=== PATIENT | female | born 1990 | race Caucasian/White ===

== ENCOUNTER 2019-04-19 11:36 | Emergency (ER) | payer MEDICAID ==
[2019-04-19] MEDS ORDERED: Sodium Chloride 0.9% 1,000 ML IV ONE (12:12)
[2019-04-19 12:19] LABS: % BASOPHILS 0.5 % (0.0-2.0); % EOSINOPHILS 0.7 % (0.0-5.0); % LYMPHOCYTES 24.2 % (20.0-50.0); % MONOCYTES 6.4 % (2.0-10.0); % NEUTROPHILS 68.2 % (40.0-80.0); EOSINOPHILE ABSOLUTE 0.1 Th/cmm (0.1-0.4); HEMATOCRIT 36.9 % (41.0-60); HEMOGLOBIN 12.5 gm/dL (12-16); LYMPHOCYTE ABSOLUTE 1.9 Th/cmm (1.5-3.0); MEAN CELL VOLUME 86.4 fl (81-100); MEAN CORPUSCULAR HEMOGLOBIN 29.2 pg (27.0-31.0); MEAN CORPUSCULAR HGB CONC 33.8 pg (28.0-36.0); MONOCYTE ABSOLUTE 0.5 Th/cmm (0.3-1.0); NEUTROPHILE ABSOLUTE 5.5 Th/cmm (1.8-8.0); PLATELET COUNT 354 Th/cmm (150-400); RED BLOOD COUNT 4.27 Mil/cmm (3.80-5.10); RED CELL DISTRIBUTION WIDTH 12.2 % (11.5-20.0)
--- NOTE | 2019-04-19 12:20 | ED Physician Chart ---
ED Chief Complaint/HPI - Patient Information Date Seen:: 04/19/19 Time Seen:: 12:00 Chief Complaint:: vomiting History of Present Illness:: this is a 29 yo female who states that she has been vomiting all morning with generalize abdominal pain. she also admits to drinking alcohol last night. she denies diabetes, heart disease and hypertension. she had her appendix removed at age [age]. she denies being . she denies smoking and drug abuse. the pain is 7/10 and generalize. Allergies:: Allergies Allergy/AdvReac Type Severity Reaction Status Date / Time No Known Allergies Allergy Verified 04/19/19 11:51 Vitals:: Vital Signs - 8 hr 04/19/19 11:51 Temp 99.4 F HR 79 RR 18 BP 124/85 O2 Sat % 98 Historian:: Patient Review:: Nurse's Note Reviewed ED Review of Systems - Review of Systems General/Constitutional: No fever, No chills, No weight loss, No weakness, No diaphoresis, No edema, No loss of appetite Skin: No skin lesions, No rash, No bruising Head: No headache, No light-headedness Eyes: No loss of vision, No pain, No diplopia ENT: No earache, No nasal drainage, No sore throat, No tinnitus Neck: No neck pain, No swelling, No thyromegaly, No stiffness, No mass noted Cardio Vascular: No chest pain, No palpitations, No PND, No orthopnea, No edema Pulmonary: No SOB, No cough, No sputum, No wheezing GI: Nausea, Vomiting, No diarrhea, Pain (generalize abdominal pain.), No melena , No hematochezia, No constipation, No hematemesis G/U: No dysuria, No frequency, No hematuria Musculoskeletal: No bone or joint pain, No back pain, No muscle pain Endocrine: No polyuria, No polydipsia Psychiatric: No prior psych history, No depression, No anxiety, No suicidal ideation Hematopoietic: No bruising, No lymphadenopathy Allergic/Immuno: No urticaria, No angioedema Neurological: No syncope, No focal symptoms, No weakness, No paresthesia, No headache, No seizure, No dizziness, No confusion, No vertigo ED Past Medical History - Past Medical History Obtainable: Yes Past Medical History: No significant medical hx Family History: None Social History: Non Smoker, Alcohol, No Drug Use, Employed Surgical History: Appendectomy Psychiatricy History: None Medication: Reviewed Family Medical History - Family Member Mother History Unknown: Yes Ethnicity: Living Status: Still Living Hx Family Diabetes: Yes ED Physical Exam - Physical Examination General/Constitutional: Awake, Well-developed, well-nourished, Alert, No distress, GCS 15, Non-toxic appearing, Ambulatory Head: Atraumatic Eyes: Lids, conjuctiva normal, PERRL, EOMI Skin: Nl inspection, No rash, No skin lesions, No ecchymosis, Well hydrated, No lymphadenopathy ENMT: External ears, nose nl, Nasal exam nl, Lips, teeth, gums nl Neck: Nontender, Full ROM w/o pain, No JVD, No nuchal rigidity, No bruit, No mass, No stridor Respiratory: Nl effort/Exclusion, Clear to Auscultation, No Wheeze/Rhonchi/Rales Cardio Vascular: RRR, No murmur, gallop, rubs, NL S1 S2 GI: No tenderness/rebounding/guarding (mild generalize tenderness without rebound.), No organomegaly, No hernia, Normal BS's, Nondistended, No mass/bruits , No McBurney tenderness : No CVA tenderness Extremities: No tenderness or effusion, Full ROM, normal strength in all extremities, No edema, Normal digits & nails Neuro/Psych: Alert/oriented, DTR's symmetric, Normal sensory exam, Normal motor strength, Judgement/insight normal, Mood normal, Normal gait, No focal deficits Misc: Normal back, No paraspinal tenderness ED Labs/Radiology/EKG Results - Lab Results Results: Abnormal Lab Results 04/19/19 04/19/19 04/19/19 12:09 12:09 12:09 WBC 8.0 RBC 4.27 Hgb 12.5 Hct 36.9 L MCV 86.4 MCH 29.2 MCHC Differential 33.8 RDW 12.2 Plt Count 354 MPV 8.3 Neutrophils % 68.2 Lymphocytes % 24.2 Monocytes % 6.4 Eosinophils % 0.7 Basophils % 0.5 PT 10.3 INR 0.99 PTT (Actin FS) 23.8 L Sodium 136 Potassium 3.8 Chloride 104 Carbon Dioxide 22.1 Anion Gap 13.7 BUN 9 Creatinine 0.6 Est GFR ( Amer) > 60.0 Est GFR (Non-Af Amer) > 60.0 BUN/Creatinine Ratio 15.0 Glucose 110 H Calcium 9.7 Total Bilirubin 0.4 AST 26 ALT 27 Alkaline Phosphatase 65 Troponin I Total Protein 7.2 Albumin 4.8 Globulin 2.4 Albumin/Globulin Ratio 2.0 H TSH Urine Source Urine Color Urine Clarity Urine pH Ur Specific [place] Urine Protein Urine Glucose (UA) Urine Ketones Urine Blood Urine Nitrate Urine Bilirubin Urine Urobilinogen Ur Leukocyte Esterase Urine RBC Urine WBC Ur Epithelial Cells Urine Bacteria Urine Test Urine Opiates Screen Urine Methadone Screen Ur Barbiturates Screen Ur Tricyclics Screen Ur Phencyclidine Scrn Amphetamines Screen U Methamphetamines Scrn U Benzodiazepines Scrn U Cocaine Metab Screen U Cannabinoids Screen Ethyl Alcohol < 10 04/19/19 04/19/19 04/19/19 12:09 12:09 13:55 WBC RBC Hgb Hct MCV MCH MCHC Differential RDW Plt Count MPV Neutrophils % Lymphocytes % Monocytes % Eosinophils % Basophils % PT INR PTT (Actin FS) Sodium Potassium Chloride Carbon Dioxide Anion Gap BUN Creatinine Est GFR ( Amer) Est GFR (Non-Af Amer) BUN/Creatinine Ratio Glucose Calcium Total Bilirubin AST ALT Alkaline Phosphatase Troponin I < 0.01 L Total Protein Albumin Globulin Albumin/Globulin Ratio TSH 1.24 Urine Source Urine Color Urine Clarity Urine pH Ur Specific [place] Urine Protein Urine Glucose (UA) Urine Ketones Urine Blood Urine Nitrate Urine Bilirubin Urine Urobilinogen Ur Leukocyte Esterase Urine RBC Urine WBC Ur Epithelial Cells Urine Bacteria Urine Test NEGATIVE Urine Opiates Screen Urine Methadone Screen Ur Barbiturates Screen Ur Tricyclics Screen Ur Phencyclidine Scrn Amphetamines Screen U Methamphetamines Scrn U Benzodiazepines Scrn U Cocaine Metab Screen U Cannabinoids Screen Ethyl Alcohol 04/19/19 04/19/19 13:55 13:55 WBC RBC Hgb Hct MCV MCH MCHC Differential RDW Plt Count MPV Neutrophils % Lymphocytes % Monocytes % Eosinophils % Basophils % PT INR PTT (Actin FS) Sodium Potassium Chloride Carbon Dioxide Anion Gap BUN Creatinine Est GFR ( Amer) Est GFR (Non-Af Amer) BUN/Creatinine Ratio Glucose Calcium Total Bilirubin AST ALT Alkaline Phosphatase Troponin I Total Protein Albumin Globulin Albumin/Globulin Ratio TSH Urine Source CLEAN C Urine Color YELLOW Urine Clarity HAZY Urine pH 8.5 Ur Specific [place] 1.010 Urine Protein 30 H Urine Glucose (UA) NEGATIVE Urine Ketones TRACE Urine Blood NEGATIVE Urine Nitrate NEGATIVE Urine Bilirubin NEGATIVE Urine Urobilinogen 0.2 Ur Leukocyte Esterase TRACE H Urine RBC 0-2 Urine WBC 2-5 Ur Epithelial Cells OCCASIONAL Urine Bacteria FEW Urine Test Urine Opiates Screen NEGATIVE Urine Methadone Screen NEGATIVE Ur Barbiturates Screen NEGATIVE Ur Tricyclics Screen NEGATIVE Ur Phencyclidine Scrn NEGATIVE Amphetamines Screen NEGATIVE U Methamphetamines Scrn NEGATIVE U Benzodiazepines Scrn NEGATIVE U Cocaine Metab Screen NEGATIVE U Cannabinoids Screen NEGATIVE Ethyl Alcohol - Radiology Results Results: ct scan of the abdomen = ovarian dermoid cyst ultra sound = nad ED Assessment - Assessment General Assessment: gastroenteritis ED Septic Shock - . Is Septic Shock (SBP<90, OR Lactate>4 mmol\L) present?: No - <6hrs of presentation: Vital Signs: Vital Signs - 8 hr 04/19/19 11:51 Temp 99.4 F HR 79 RR 18 BP 124/85 O2 Sat % 98 ED Reassessment (Disposition) - Reassessment Reassessment Condition:: Improved - Diagnosis Diagnosis:: uriinary tract infection ovarian dermoid cyst - Aftercare/Follow up Instructions Aftercare/Follow-Up Instructions:: Counseled pt regarding lab results/diagnosis & need follow up, Refer to Discharge Instructions, Counseled pt & family regarding lab results/diagnosis & need follow up Medication Prescribed:: rianna bosch - Patient Disposition Discharge/Transfer:: Home Condition at Disposition:: Improved
[2019-04-19 12:28] LABS: INR 0.99 (0.5-1.4)
[2019-04-19 12:36] LABS: ALBUMIN 4.8 gm/dL (3.7-5.3); ALKALINE PHOSPHATASE 65 U/L (34-104); ANION GAP 13.7 (7.0-16.0); BILIRUBIN,TOTAL 0.4 mg/dL (0.3-1.0); BUN - UREA NITROGEN 9 mg/dL (7-25); CALCIUM SERUM 9.7 mg/dL (8.6-10.3); CARBON DIOXIDE 22.1 mEq/L (21.0-31.0); CHLORIDE 104 mEq/L (98-107); CREATININE - SERUM 0.6 mg/dL (0.6-1.2); GFR AFRICAN-AMERICAN > 60.0 ml/min (>90); GFR NON AFRICAN-AMERICAN > 60.0 ml/min; GLUCOSE 110 mg/dL (70-105); POTASSIUM SERUM 3.8 mEq/L (3.5-5.1); SGOT 26 U/L (13-39); SGPT/ALT 27 U/L (7-52); SODIUM SERUM 136 mEq/L (136-145); TOTAL PROTEIN,SERUM 7.2 gm/dL (6.0-8.3)
[2019-04-19 14:11] LABS: URINE SOURCE CLEAN C
[2019-04-19 14:20] LABS: URINE BILIRUBIN NEGATIVE (NEGATIVE); URINE BLOOD NEGATIVE (NEGATIVE); URINE GLUCOSE (UA) NEGATIVE (NEGATIVE); URINE KETONE TRACE mg/dL (NEGATIVE); URINE LEUKOCYTE ESTERASE TRACE (NEGATIVE); URINE MICROSCOPIC INDICATED? YES; URINE NITRATE NEGATIVE (NEGATIVE); URINE PH 8.5 (4.6 - 8.0); URINE PROTEIN 30 mg/dL (NEGATIVE); URINE UROBILINOGEN 0.2 E.U./dL (0.2 - 1.0)
[2019-04-19 14:21] LABS: URINE CLARITY HAZY (CLEAR); URINE COLOR YELLOW
[2019-04-19 14:27] LABS: URINE BACTERIA FEW /hpf (NONE SEEN); URINE EPITHELIAL CELLS OCCASIONAL /lpf (FEW); URINE RBC 0-2 /hpf (0-5)
[2019-04-19 14:28] LABS: AMPHETAMINE URINE NEGATIVE (NEGATIVE); BARBITURATES URINE NEGATIVE (NEGATIVE); BENZODIAZEPINES QUAL URINE NEGATIVE (NEGATIVE); CANNABINOID THC NEGATIVE (NEGATIVE); COCAINE METABOLITE QUAL URINE NEGATIVE (NEGATIVE); METHADONE URINE NEGATIVE (NEGATIVE); METHAMPHETAMINES QUAL URINE NEGATIVE (NEGATIVE); OPIATES (MORPHINE) QUAL. URINE NEGATIVE (NEGATIVE); PHENCYCLIDINE (PCP) URINE NEGATIVE (NEGATIVE); TRICYCLICS (TCA) QUAL. URINE NEGATIVE (NEGATIVE)
--- NOTE | 2019-04-20 09:35 | Diagnostic Imaging Report ---
CT abdomen and pelvis without intravenous contrast Indication: Abdominal pain Comparison: None, Technique: Axial images were obtained from the lung bases to the bilateral proximal femurs without IV contrast. Coronal reconstructions were made. total DLP: [id number], CTDI11.1 FINDINGS: Hypoventilatory and atelectatic changes of the lung bases are noted. Evaluation of the solid organs is limited due to lack of IV contrast. There is fatty infiltration of the liver. No focal hepatic, splenic, or pancreatic lesions. No focal adrenal lesions. No evidence of hydronephrosis or focal renal lesions. 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 There is a heterogeneous density mass along the left adnexa measuring 3.0 x 2.9 cm with fat density noted. There is mild fullness of the right adnexa. The appendix is not well-visualized. Moderate stool is noted greatest in the cecum. There is are areas of fatty infiltration of the small and large bowel mucosa. There is trace free fluid in the pelvis. No free air. The osseous structures demonstrate no acute abnormalities. IMPRESSION: Left adnexal heterogeneous 3 x 2.9 cm mass containing fat density most fuels sales representative of a dermoid. This is situated along the left ovarian margins. Recommend clinical correlation short-term follow-up with pelvic ultrasound Fullness of the right adnexa, again pelvic ultrasound is further assessment. Trace free fluid in the pelvis. Fatty areas of fatty infiltration of the ascending colon and terminal ileum mucosa probably due to chronic inflammatory process. No acute inflammation identified throughout these regions. The appendix was not visualized. Slight malrotation of the right kidney
--- NOTE | 2019-04-20 09:42 | Diagnostic Imaging Report ---
Ultrasound abdomen HISTORY: Right adnexal pain COMPARISON: Pelvic ultrasound the same day and CT abdomen and pelvis the same day Technique: Sonography of the abdomen was performed in multiple planes. FINDINGS: Exam is limited due to body habitus and bowel gas. The liver demonstrates normal echogenicity and measures 11.7 cm. The liver margins are not well defined however no obvious focal lesions. No gallstones. The gallbladder wall is borderline prominent. The common bile duct measures 2 mm. Limited evaluation of the pancreas is grossly unremarkable. The right kidney measures 9.8 x 4.4 cm. The left kidney measures 9.5 x 5.1 cm. There is assessment for focal lesions is limited, however, no obvious focal lesions identified. No evidence of hydronephrosis. The spleen measures 8.8 cm. IMPRESSION: No evidence of gallstones. Borderline prominent gallbladder wall, nonspecific No evidence of hydronephrosis.
--- NOTE | 2019-04-20 09:45 | Diagnostic Imaging Report ---
Ultrasound pelvis HISTORY: Pain, mass COMPARISON: CT abdomen and pelvis performed the same day. LMP is 03/23/2019 Technique: Longitudinal and transverse sonographic sector images of the pelvis were obtained transabdominally only. No patient refused transvaginal exam. IMPRESSION: Exam is limited due to body habitus and as patient refused transvaginal exam. The uterus measures 7.6 x 4.6 x 5.7 cm. The endometrial complex measures 8 mm. The right ovary measures 3.5 x 2.9 cm. Vascular flow to right ovary is noted. There is suboptimal assessment left adnexa with heterogeneity noted in this region. Left ovarian margins are difficult to define. There does appear to be vascular flow to left ovary. Heterogeneous area with areas of increased circular increased echogenicity are seen along the left adnexa with this entire area measuring 3.8 x 4.0 cm. No free fluid in the pelvis. IMPRESSION: Limited assessment of the left adnexa. Ovarian tissue is seen on the left with vascularity. There is also heterogeneous lesion with areas of circular echogenicity in this region probably correspond to patient's ovarian dermoid seen on recent CT examination. Clinical correlation and follow-up is recommended. No free fluid identified.
== END 2019-04-19 18:54 | disposition home or self-care (01) ==
LOC: ER 11:36
DX: N39.0 Urinary tract infection, site not specified (principal); D27.9 Benign neoplasm of unspecified ovary; Z90.49 Acquired absence of other specified parts of digestive tract
CPT/HCPCS: 99284; 96374; 96375; 76700; 76856; 74176; 84484; 36415; 80307; 84443; 85025; 85610; 85730; 81001; 80320; 81025; 80053; J1885; J0696; J2405; J7030; Q0162